=== PATIENT | female | born 1950 | race Caucasian/White ===

== ENCOUNTER 2025-01-09 10:46 | Inpatient (IN) | payer OTHER, BC ==
[2025-01-09] MEDS ORDERED: dilTIAZem HCL 30 MG TABLET ONE (11:20)
[2025-01-09] MEDS: dilTIAZem HCL 30 MG TABLET PO ONE (11:45)
[2025-01-09 11:51] LABS: ABSOLUTE IMMATURE GRANULOCYTES 0.04 x10^3/uL (0.0-0.031); BASOPHILS # 0.03 x10^3/uL (0.01-0.08); EOSINOPHIL % 0.7 % (0.7-5.8); EOSINOPHILS # 0.05 x10^3/uL (0.04-0.36); HEMATOCRIT 41.8 % (34.1-44.9); HEMOGLOBIN 14.6 g/dL (11.2-15.7); MCHC 34.9 g/dl (32.2-35.5); MEAN PLT VOLUME 8.6 fl (9.4-12.3); MONOCYTE # 0.72 x10^3/uL (0.24-0.86); MONOCYTE % 9.5 % (4.7-12.5); PLATELET COUNT 361 x10^3/uL (182-369); RDW 13.4 % (12.4-16.6)
[2025-01-09 12:17] LABS: POTASSIUM 4.1 mmol/L (3.5-5.1)
[2025-01-09 12:20] LABS: ALBUMIN 3.1 g/dl (3.4-5.0); CALCIUM 9.2 mg/dL (8.5-10.1)
[2025-01-09 12:21] LABS: BLOOD UREA NITROGEN 29.9 mg/dL (7-18); MAGNESIUM 2.5 mg/dL (1.8-2.4)
[2025-01-09 12:24] LABS: CREATININE 1.6 mg/dL (0.55-1.3)
[2025-01-09 12:25] LABS: BILIRUBIN,TOTAL 0.4 mg/dL (0.2-1); TOT PROT 6.3 g/dl (6.4-8.2)
[2025-01-09] MEDS: SODIUM CHLORIDE 0.9% 500 ML INFUS.BAG IV ONE (14:16)
[2025-01-09] MEDS ORDERED: APIXABAN 2.5 MG TABLET ONE (17:14)
[2025-01-09] MEDS: APIXABAN 2.5 MG TABLET PO ONE (17:24)
[2025-01-09] MEDS ORDERED: PATIENT'S OWN MEDICATION (NON-FORMULARY) (Zolpidem Tartrate [Ambien] 10 MG Tablet) PO PRN (18:24)
[2025-01-09] MEDS ORDERED: ZOLPIDEM TARTRATE 5 MG TABLET PO PRN (18:46)
[2025-01-09] MEDS: LEVALBUTEROL HCL 0.31 MG/3 ML VIAL.NEB IH SCH (21:34)
[2025-01-09] MEDS: GABAPENTIN 400 MG CAPSULE PO SCH (22:02)
[2025-01-09] MEDS: LORazepam 0.5 MG TABLET PO SCH (22:02)
[2025-01-09] MEDS: APIXABAN 5 MG TABLET PO SCH (22:02)
[2025-01-09] MEDS: BENZTROPINE MESYLATE 0.5 MG TABLET (FP) PO SCH (22:17)
[2025-01-10 07:48] LABS: ABSOLUTE IMMATURE GRANULOCYTES 0.03 x10^3/uL (0.0-0.031); BASOPHILS # 0.02 x10^3/uL (0.01-0.08); EOSINOPHIL % 3.1 % (0.7-5.8); EOSINOPHILS # 0.15 x10^3/uL (0.04-0.36); HEMATOCRIT 38.5 % (34.1-44.9); HEMOGLOBIN 13.2 g/dL (11.2-15.7); MCHC 34.3 g/dl (32.2-35.5); MEAN CELL VOLUME 89.3 fl (79.4-94.8); MEAN PLT VOLUME 8.6 fl (9.4-12.3); MONOCYTE # 0.62 x10^3/uL (0.24-0.86); MONOCYTE % 12.7 % (4.7-12.5); PLATELET COUNT 306 x10^3/uL (182-369); RDW 13.5 % (12.4-16.6)
[2025-01-10 08:03] LABS: POTASSIUM 3.8 mmol/L (3.5-5.1)
[2025-01-10 08:06] LABS: CALCIUM 8.8 mg/dL (8.5-10.1)
[2025-01-10 08:07] LABS: BLOOD UREA NITROGEN 21.7 mg/dL (7-18)
[2025-01-10 08:10] LABS: CREATININE 0.9 mg/dL (0.55-1.3)
[2025-01-10] MEDS: LOSARTAN POTASSIUM 25 MG TABLET PO SCH (09:46)
[2025-01-10] MEDS ORDERED: DESVENLAFAXINE SUCCINATE 100 MG PO SCH (10:00)
[2025-01-10] MEDS ORDERED: METOPROLOL TARTRATE 25 MG TABLET (FP) PO SCH ×2 (11:27→18:31)
[2025-01-10] MEDS: METOPROLOL TARTRATE 25 MG TABLET (FP) PO ONE (12:10)
[2025-01-10] MEDS: ARIPiprazole 10 MG TABLET PO SCH (14:14)
[2025-01-10] MEDS: SODIUM CHLORIDE 500 ML IV STA (16:41)
[2025-01-10] MEDS: guaiFENesin 200 MG/10 ML 10 ML UNIT-DOSE CUPS PO PRN (16:42)
[2025-01-10] MEDS: METOPROLOL TARTRATE 25 MG TABLET (FP) PO SCH (18:46)
[2025-01-10] MEDS: SODIUM CHLORIDE 1,000 ML IV SCH (19:35)
[2025-01-10] MEDS: ROSUVASTATIN CA 20 MG TABLET PO SCH (21:06)
[2025-01-11] MEDS: guaiFENesin/D-METHORPHAN HB 10 ML UNIT-DOSE CUPS PO ONE (06:01)
[2025-01-11 06:34] VITALS: PULSE 97
[2025-01-11 08:06] LABS: HEMATOCRIT 37.4 % (34.1-44.9); HEMOGLOBIN 12.8 g/dL (11.2-15.7); MCHC 34.2 g/dl (32.2-35.5); MEAN CELL VOLUME 89.3 fl (79.4-94.8); MEAN PLT VOLUME 8.6 fl (9.4-12.3); PLATELET COUNT 296 x10^3/uL (182-369); RDW 13.6 % (12.4-16.6)
[2025-01-11 08:34] LABS: CALCIUM 8.8 mg/dL (8.5-10.1)
[2025-01-11 08:35] LABS: BLOOD UREA NITROGEN 14.5 mg/dL (7-18)
[2025-01-11 08:38] LABS: CREATININE 0.8 mg/dL (0.55-1.3)
[2025-01-11 09:16] VITALS: BMI 28.1
[2025-01-11] MEDS: METOPROLOL TARTRATE 50 MG TABLET (FP) PO SCH (09:23)
[2025-01-11 10:24] VITALS: BP 101/68; RESP 16; TEMP 98.4
== END 2025-01-11 10:44 | disposition home health service (06) | DRG 309 ==
LOC: JER 10:46 → JERBED 18:28 → J4W 19:36
PROVIDERS: ADMIT Internal Medicine; ATTEND Internal Medicine
DX: I48.91 Unspecified atrial fibrillation (principal); J98.11 Atelectasis; I10 Essential (primary) hypertension; E78.5 Hyperlipidemia, unspecified
CPT/HCPCS: 0241U-QW; 36415; 71045-TC-FY; 71275-TC; 80048; 80053; 83036; 83735; 84443; 84484; 85025; 85027; 93005; 93010; 93306-TC; 97116-GP; 97161-GP; 99291; Q9967